=== PATIENT | female | born 1950 | race Caucasian/White ===

== ENCOUNTER 2016-03-06 08:41 | Outpatient (CLI) | payer MEDICARE, OTHER ==
[2014-05-09 10:02] VITALS: BP 113/75
== END 2016-03-06 08:42 ==
LOC: LAB 08:41
PROVIDERS: ATTEND Family Medicine
DX: E03.9 Hypothyroidism, unspecified (principal); E11.9 Type 2 diabetes mellitus without complications
CPT/HCPCS: 36415; 83036; 84443

== ENCOUNTER 2016-07-08 08:52 | Outpatient (CLI) | payer MEDICARE, OTHER ==
[2014-05-09 10:02] VITALS: BP 113/75
== END 2016-07-08 08:53 ==
LOC: LAB 08:52
PROVIDERS: ATTEND Family Medicine
DX: E11.9 Type 2 diabetes mellitus without complications (principal); E03.9 Hypothyroidism, unspecified
CPT/HCPCS: 36415; 83036; 84443

== ENCOUNTER 2017-01-06 08:55 | Outpatient (CLI) | payer MEDICARE, OTHER ==
[2014-05-09 10:02] VITALS: BP 113/75
[2017-01-06 10:22] LABS: eGFR (African) > 60; eGFR (Non-African) > 60
== END 2017-01-06 08:56 ==
LOC: LAB 08:55
PROVIDERS: ATTEND Family Medicine
DX: E11.9 Type 2 diabetes mellitus without complications (principal); I25.10 Atherosclerotic heart disease of native coronary artery without angina pectoris
CPT/HCPCS: 36415; 80053; 80061; 82043; 83036

== ENCOUNTER 2017-05-05 08:42 | Outpatient (CLI) | payer MEDICARE, OTHER ==
[2014-05-09 10:02] VITALS: BP 113/75
== END 2017-05-05 08:44 ==
LOC: LAB 08:42
PROVIDERS: ATTEND Family Medicine
DX: E11.9 Type 2 diabetes mellitus without complications (principal)
CPT/HCPCS: 36415; 83036

== ENCOUNTER 2017-09-12 10:21 | Outpatient (CLI) | payer MEDICARE, OTHER ==
[2014-05-09 10:02] VITALS: BP 113/75
== END 2017-09-12 10:26 ==
LOC: LAB 10:21
PROVIDERS: ATTEND Family Medicine
DX: E11.9 Type 2 diabetes mellitus without complications (principal)
CPT/HCPCS: 36415; 83036

== ENCOUNTER 2018-03-17 10:57 | Outpatient (CLI) | payer MEDICARE, OTHER ==
[2014-05-09 10:02] VITALS: BP 113/75
[2018-03-17 12:42] LABS: eGFR (Non-African) > 60
== END 2018-03-17 11:00 ==
LOC: LAB 10:57
PROVIDERS: ATTEND Family Medicine
DX: E11.9 Type 2 diabetes mellitus without complications (principal); E03.9 Hypothyroidism, unspecified
CPT/HCPCS: 36415; 80053; 80061; 83036; 84443

== ENCOUNTER 2019-01-27 10:14 | Outpatient (CLI) | payer MEDICARE, OTHER ==
[2014-05-09 10:02] VITALS: BP 113/75
[2019-01-27 11:14] LABS: eGFR (Non-African) > 60
== END 2019-01-27 10:19 ==
LOC: LAB 10:14
PROVIDERS: ATTEND Internal Medicine Interventional Cardiology
DX: I21.01 ST elevation (STEMI) myocardial infarction involving left main coronary artery (principal)
CPT/HCPCS: 36415; 80048

== ENCOUNTER 2019-03-17 17:10 | Outpatient (CLI) | payer MEDICARE, OTHER ==
[2014-05-09 10:02] VITALS: BP 113/75
== END 2019-03-17 17:30 ==
LOC: LAB 17:10
PROVIDERS: ATTEND Family Medicine
DX: E11.9 Type 2 diabetes mellitus without complications (principal); E03.9 Hypothyroidism, unspecified
CPT/HCPCS: 83036; 84443